=== PATIENT | female | born 1945 | race Caucasian/White ===

== ENCOUNTER 2021-11-07 15:28 | Inpatient (IN) | payer MEDICARE, OTHER ==
[2021-11-07] MEDS ORDERED: MORPHINE SULFATE 4 MG/ML SYRINGE IV STA (15:41)
--- NOTE | 2021-11-07 16:05 | ED ---
General Adult HPI - General Chief complaint: Extremity Injury, Upper Stated complaint: Fall Time Seen by Provider: 11/07/21 15:36 Source: patient, family, EMS, RN notes reviewed Mode of arrival: ambulatory - History of Present Illness Initial comments: Patient is a 76-year-old female presents the emergency room via EMS with her spouse after tripping and falling while at a restaurant earlier this afternoon. She fell onto her right shoulder and scanned her right knee. She reports that she heard a pop when she fell to her right shoulder. She is having severe pain in her right shoulder despite 150 g of fentanyl given to the patient by EMS. She has severe pain with any touch and declines any range of motion attempts both actively and passively. She denies hitting her head or any loss of consciousness. She is on Eliquis for pulmonary emboli which were identified last month. In addition to her pulmonary emboli history she has a history significant for hypertension, osteoarthritis, hyperlipidemia, depression, insomnia, and asthma. - Related Data Allergies Allergy/AdvReac Type Severity Reaction Status Date / Time No Known Allergies Allergy Verified 11/07/21 15:34 Review of Systems ROS Statement: Those systems with pertinent positive or pertinent negative responses have been documented in the HPI. ROS Other: All systems not noted in ROS Statement are negative. Past Medical History Past Medical History: Asthma, Hypertension, Osteoarthritis (OA), Pulmonary Embolus (PE) History of Any Multi-Drug Resistant Organisms: None Reported Past Psychological History: Depression Smoking Status: Never smoker Past Alcohol Use History: None Reported Past Drug Use History: None Reported General Exam General appearance: alert, in no apparent distress Head exam: Present: atraumatic, normocephalic, normal inspection Eye exam: Present: normal appearance, PERRL, EOMI. Absent: scleral icterus, conjunctival injection, periorbital swelling ENT exam: Present: normal exam, mucous membranes moist Neck exam: Present: normal inspection Respiratory exam: Present: normal lung sounds bilaterally. Absent: respiratory distress, wheezes, rales, rhonchi, stridor Cardiovascular Exam: Present: regular rate, normal rhythm, normal heart sounds. Absent: systolic murmur, diastolic murmur, rubs, gallop, clicks Right Shoulder Exam: Present: tenderness, tenderness over AC joint. Absent: full ROM (Declined active or passive range of motion.), laceration, ecchymosis, deformity, crepitus, dislocation, erythema Vascular: Absent: vascular compromise Right Lower Leg exam: Present: tenderness, swelling, laceration, deformity (chronic) Neurovascular tendon exam: Present: no vascular compromise Course Vital Signs 11/07/21 11/07/21 15:30 16:33 Temperature 98.0 F Pulse Rate 85 84 Respiratory 18 16 Rate Blood Pressure 172/79 145/83 O2 Sat by Pulse 98 98 Oximetry Procedures - Laceration Laceration #1 Site: lower extremity Size (cm): 3 Description: linear, clean Depth: simple, single layer Anesthetic Used: lidocaine 1% Anesthesia Technique: local infiltration Type of Sutures: nylon Size of Sutures: 4-0 Number of Sutures: 4 Technique: simple, interrupted Patient Tolerated Procedure: well, no complications Medical Decision Making - Medical Decision Making 36-year-old female presents to the emergency room after a trip and fall on a restaurant earlier today landing on her right arm and she needed an abrasion to her right couch. Pain uncontrolled with pain medication administered by EMS. Are already in swelling sling will continue sling. Will check x-ray of the right shoulder. Will give morphine for pain. With continued high levels of pain despite morphine will give Dilaudid 1 mg IV. X-ray shows fracture of the surgical neck of the humerus with separation of the distal fracture fragments of from the proximal fracture fragment. Pain still suboptimally controlled will give additional 1 mg of Dilaudid. Case consulted with Kamron from [facility] reporting patient may go home was seen in follow-up with [facility] however unfortunately patient has intractable pain due to fracture. Case further discuss with Dr. Crum accepts admission for intractable pain due to trauma and humerus fracture. Will consult medical management. He is requesting a CT would be ordered of the shoulder with [place] views bone window and 3-D reconstruction will order. Will continue pain management in order home medications. Laceration to right couch closure with sutures tolerated well. Needs suture removal in 7-10 days after discharge from admission. Case discussed with Dr. Ernst. - Radiology Data Radiology results: report reviewed, image reviewed X-ray shoulder right complete Fracture of the surgical neck of the humerus with separation of distal fracture fragments from the proximal fracture fragment Disposition Clinical Impression: Fracture of humerus, closed Disposition: ADMITTED IP TO THIS [facility] Condition: Stable Instructions (If sedation given, give patient instructions): Arm Fracture in Adults (ED) Is patient prescribed a controlled substance at d/c from ED?: No Referrals: Nonstaff,Physician [REFERRING] - 1-2 days Time of Disposition: 18:31
[2021-11-07] MEDS ORDERED: LIDOCAINE 1% INJ 10MG/ML (20 ML MDV) SQ ONE (16:09)
--- NOTE | 2021-11-07 16:22 | XR ---
EXAMINATION TYPE: XR shoulder complete RT DATE OF EXAM: 11/07/2021 COMPARISON: None HISTORY: Pain TECHNIQUE: 3 view right shoulder FINDINGS: There is a fracture of the surgical neck of the humerus. The humeral shaft is displaced vernon y from the humeral head. The humeral head articulates with the glenoid. There is some degenerative akosua int change at the glenohumeral junction. Some narrowing of the acromiohumeral joint space may be pres ent. IMPRESSION: 1. Fracture of the surgical neck of the humerus with separation of the distal fracture fragment from the proximal fracture fragment.
[2021-11-07] MEDS ORDERED: HYDROmorphone 1 MG/ML 1 ML SYRINGE IVP STA ×2 (16:31→17:21)
[2021-11-07] MEDS ORDERED: NALOXONE 0.4 MG/ML 1 ML VIAL IV PRN (18:31)
[2021-11-07] MEDS ORDERED: FLUoxetine HCL 20 MG CAP PO STA (18:34)
--- NOTE | 2021-11-07 19:16 | CT ---
EXAMINATION TYPE: CT shoulder RT wo con CT DLP: 1074.6 mGycm, Automated exposure control for dose reduction was used. DATE OF EXAM: 11/07/2021 6:47 PM COMPARISON: Shoulder radiograph same day CLINICAL INDICATION:Female, 76 years old with history of fracture; , Shoulder pain/fall. Fracture TECHNIQUE: Axial images were obtained of the right shoulder without the use of IV contrast. Addition al coronal and sagittal reformatted images and soft tissue and bone window were obtained for review. 3-D reconstruction was created on a separate workstation. FINDINGS: Commuted fracture of the right proximal humerus with anterior dislocation of the distal portion inclu ding the diaphysis anteriorly. There is end-stage osteoarthrosis changes of the right shoulder with s ubchondral cystic changes and osteophyte formation. Visualized portions of the scapula and the clavic le are intact. The lungs are intact. There is mild soft tissue swelling. IMPRESSION: 1. Comminuted fracture of the proximal right humerus with complete anterior displacement and shorten ing. 2. End-stage osteoarthrosis of the right shoulder.
[2021-11-07] MEDS: HYDROmorphone 1 MG/ML 1 ML SYRINGE IVP PRN ×2 (20:05→23:40)
[2021-11-07] MEDS: ATORVASTATIN 20 MG TAB PO SCH (21:54)
[2021-11-07] MEDS: traZODone HCL 50 MG TAB PO SCH (21:54)
[2021-11-07] MEDS: APIXABAN 5 MG TAB PO SCH (21:54)
[2021-11-07] MEDS: HYDROcodone/APAP 10-325MG 1 EACH TAB PO PRN (21:55)
[2021-11-08] MEDS: HYDROmorphone 1 MG/ML 1 ML SYRINGE IVP PRN ×3 (03:40→11:54)
[2021-11-08] MEDS: LEVOTHYROXINE 125 MCG TAB PO SCH (05:32)
[2021-11-08] MEDS: HYDROcodone/APAP 10-325MG 1 EACH TAB PO PRN ×3 (06:15→21:35)
[2021-11-08] MEDS: APIXABAN 5 MG TAB PO SCH ×2 (07:59→21:36)
[2021-11-08] MEDS: LOSARTAN 50 MG TAB PO SCH (07:59)
[2021-11-08] MEDS: MONTELUKAST 10 MG TAB PO SCH (07:59)
[2021-11-08] MEDS: MORPHINE SULFATE 2 MG/ML SYRINGE IVP PRN ×2 (15:08→19:38)
--- NOTE | 2021-11-08 17:42 | P.HPOR ---
History of Present Illness H&P Date: 11/08/21 Chief Complaint: Right shoulder pain This is a pleasant 76-year-old female who is admitted through the emergency department on 11/07/2021 after falling in a restaurant, landing on her right shoulder. She was brought to the emergency department by her where x- rays were taken. X-rays revealed a comminuted and 100% displaced proximal humerus fracture. The patient has history of diagnosis of pulmonary emboli bilaterally 2 months ago. She has been on Eliquis since then. She is unsure as to why she developed pulmonary emboli. She also states that they found "ground glass" on her chest x-ray. She reports no recent illnesses. The patient is admitted to our service for surgical intervention and further evaluation. Past Medical History Past Medical History: Asthma, Hypertension, Osteoarthritis (OA), Pulmonary Embolus (PE) History of Any Multi-Drug Resistant Organisms: None Reported Past Psychological History: Depression Smoking Status: Never smoker Past Alcohol Use History: None Reported Past Drug Use History: None Reported Medications and Allergies Home Medications Medication Instructions Recorded Confirmed Type Albuterol Inhaler [Ventolin Hfa 2 puff INHALATION RT-Q6H PRN 11/07/21 11/07/21 History Inhaler] Apixaban [Eliquis] 5 mg PO BID 11/07/21 11/07/21 History Ascorbic Acid [Vitamin C] 1,000 mg PO DAILY 11/07/21 11/07/21 History Calcium Carb/Mag Ox/Zinc Sulf 1 tab PO DAILY 11/07/21 11/07/21 History [[place]aw-Olxh 334-134-5 mg Tab] Co Q-10 30mg 30 mg PO DAILY 11/07/21 11/07/21 History Cyanocobalamin [Vitamin B-12] 500 mcg PO DAILY 11/07/21 11/07/21 History Cyclobenzaprine [Flexeril] 10 mg PO HS 11/07/21 11/07/21 History Diclofenac Sodium Gel [Voltaren 2 gm TOPICAL QID PRN 11/07/21 11/07/21 History Gel] Fluticasone Nasal [place] [Flonase 2 spray EA NOSTRIL DAILY PRN 11/07/21 11/07/21 History Nasal [place]] Fluticasone Propion/Salmeterol 2 puff INHALATION RT-BID 11/07/21 11/07/21 History [Advair Hfa 45-21 Mcg Inhaler] Furosemide [Lasix] 20 mg PO DAILY 11/07/21 11/07/21 History HYDROcodone/APAP 5-325MG [[place] 1 tab PO BID PRN 11/07/21 11/07/21 History 5-325] Levothyroxine Sodium [Synthroid] 125 mcg PO DAILY 11/07/21 11/07/21 History Montelukast [Singulair] 10 mg PO DAILY 11/07/21 11/07/21 History Potassium Chloride ER [K-Dur 10] 10 meq PO TID 11/07/21 11/07/21 History RX: FLUoxetine HCL 40 mg PO DAILY 11/07/21 11/07/21 History RX: Losartan Potassium 100 mg PO DAILY 11/07/21 11/07/21 History RX: Omeprazole 20 mg PO BID 11/07/21 11/07/21 History RX: Vitamin A 2,400 mcg PO DAILY 11/07/21 11/07/21 History Simvastatin [Zocor] 5 mg PO HS 11/07/21 11/07/21 History Turmeric Root Extract [Turmeric] 500 mg PO DAILY 11/07/21 11/07/21 History bisacodyL [Dulcolax] 30 mg PO DAILY@1400 11/07/21 11/07/21 History fluorouraciL [Efudex] 1 applic TOPICAL BID 11/07/21 11/07/21 History traZODone HCL [Desyrel] 50 mg PO HS 11/07/21 11/07/21 History Allergies Allergy/AdvReac Type Severity Reaction Status Date / Time No Known Allergies Allergy Verified 11/07/21 19:07 Physical Examination This is a pleasant 76-year-old female in no acute distress. She is alert and oriented 3. Exam of the upper extremities reveals no obvious deformity. She has full cervical spine motion without difficulty or pain. Exam of the upper extremities reveals swelling and ecchymosis to the right shoulder and upper arm. Her arm is in a sling. She has full wrist and finger motion without difficulty or pain. Neurovascular status to the upper extremity is intact. Exam of the left upper extremity is unremarkable. Exam of the lower extremities unremarkable. There are no deformities noted. She is able to lift each leg off the bed independently. Neurovascular status to the lower extremities is intact. Results X-rays and computed tomography scan of the right proximal humerus reveals a comminuted fracture with 100% displacement of the humeral head. Assessment and Plan (1) History of pulmonary embolism Current Visit: Yes Status: Acute Code(s): Z86.711 - PERSONAL HISTORY OF PULMONARY EMBOLISM SNOMED Code(s): 768223235 (2) Fracture of humerus, closed Current Visit: Yes Status: Acute Code(s): S42.309A - UNSP FRACTURE OF SHAFT OF HUMERUS, UNSP ARM, INIT SNOMED Code(s): 29508412 Plan: The clinical and x-ray findings are discussed with the patient. It is discussed that surgical treatment is indicated. However, with her recent history of pulmonary emboli and anticoagulation therapy, is recommended that she be evaluated by pulmonology for surgical recommendations. We'll continue to follow and we plan on surgery on Friday if she is cleared by pulmonology and if we can hold her Eliquis.
[2021-11-08] MEDS: ATORVASTATIN 20 MG TAB PO SCH (21:36)
[2021-11-08] MEDS: traZODone HCL 50 MG TAB PO SCH (21:36)
[2021-11-09] MEDS: HYDROmorphone 1 MG/ML 1 ML SYRINGE IVP PRN ×2 (00:53→05:16)
[2021-11-09 03:55] VITALS: PULSE 89
[2021-11-09] MEDS: LEVOTHYROXINE 125 MCG TAB PO SCH (05:15)
[2021-11-09 07:51] VITALS: BP 123/69; RESP 18; TEMP 98.6
[2021-11-09] MEDS ORDERED: HEPARIN SOD,PORK IN 0.45% NACL 25,000 UNIT in 0.45% NACL 1 250ML.BAG IV SCH (08:00)
--- NOTE | 2021-11-09 09:06 | P.DS ---
Providers Date of admission: 11/08/21 13:38 Expected date of discharge: 11/09/21 Attending physician: Tashi Crum Consults: 11/08/21 12:32 Consult Physician Routine Consulting Provider: Jeremiah Francisco Consult Reason/Comments: surgical clearance, recent bilat PE's Do you want consulting provider notified?: Yes Primary care physician: JING VENEGAS MD - Discharge Diagnosis(es) (1) History of pulmonary embolism Current Visit: Yes Status: Acute (2) Fracture of humerus, closed Current Visit: Yes Status: Acute Hospital Course: This is a pleasant 76-year-old female who is admitted through the emergency department on 11/07/2021 after falling in a restaurant, landing on her right shoulder. She was brought to the emergency department by her where x- rays were taken. X-rays revealed a comminuted and 100% displaced proximal humerus fracture. The patient has history of diagnosis of pulmonary emboli bilaterally 2 months ago. She has been on Eliquis since then. She is unsure as to why she developed pulmonary emboli. She also states that they found "ground glass" on her chest x-ray. She reports no recent illnesses. The patient is admitted to our service for surgical intervention and further evaluation. Surgery was planned for this patient. It was recommended she have a reverse total shoulder replacement. The patient decided to be discharged to home and follow up with her orthopedic surgeon in [place]. The patient will be discharged to home today. She is advised to follow-up with orthopedics and pulmonology in [place] as soon as possible. She may continue her anticoagulation therapy until surgery as scheduled. Patient Condition at Discharge: Stable Plan - Discharge Summary New Discharge Prescriptions: New HYDROcodone/APAP 10-325MG [[place] 10-325] 1 tab PO Q6HR PRN #28 tab PRN Reason: Pain No Action Montelukast [Singulair] 10 mg PO DAILY Losartan Potassium 100 mg PO DAILY Levothyroxine Sodium [Synthroid] 125 mcg PO DAILY HYDROcodone/APAP 5-325MG [[place] 5-325] 1 tab PO BID PRN PRN Reason: Pain Furosemide [Lasix] 20 mg PO DAILY bisacodyL [Dulcolax] 30 mg PO DAILY@1400 Albuterol Inhaler [Ventolin Hfa Inhaler] 2 puff INHALATION RT-Q6H PRN PRN Reason: Shortness Of Breath Co Q-10 30mg 30 mg PO DAILY Fluticasone Nasal [place] [Flonase Nasal [place]] 2 spray EA NOSTRIL DAILY PRN PRN Reason: Allergy Symptoms Ascorbic Acid [Vitamin C] 1,000 mg PO DAILY Diclofenac Sodium Gel [Voltaren Gel] 2 gm TOPICAL QID PRN PRN Reason: Pain Cyclobenzaprine [Flexeril] 10 mg PO HS Fluticasone Propion/Salmeterol [Advair Hfa 45-21 Mcg Inhaler] 2 puff INHALATION RT-BID traZODone HCL [Desyrel] 50 mg PO HS Simvastatin [Zocor] 5 mg PO HS Potassium Chloride ER [K-Dur 10] 10 meq PO TID Omeprazole 20 mg PO BID Cyanocobalamin [Vitamin B-12] 500 mcg PO DAILY Turmeric Root Extract [Turmeric] 500 mg PO DAILY Calcium Carb/Mag Ox/Zinc Sulf [Ves-Mut-Xraq 334-134-5 mg Tab] 1 tab PO DAILY Vitamin A 2,400 mcg PO DAILY fluorouraciL [Efudex] 1 applic TOPICAL BID FLUoxetine HCL 40 mg PO DAILY Apixaban [Eliquis] 5 mg PO BID Discharge Medication List Albuterol Inhaler [Ventolin Hfa Inhaler] 2 puff INHALATION RT-Q6H PRN 11/07/21 [History] Apixaban [Eliquis] 5 mg PO BID 11/07/21 [History] Ascorbic Acid [Vitamin C] 1,000 mg PO DAILY 11/07/21 [History] Calcium Carb/Mag Ox/Zinc Sulf [Zot-Kxn-Bxhr 334-134-5 mg Tab] 1 tab PO DAILY 11/07/21 [History] Co Q-10 30mg 30 mg PO DAILY 11/07/21 [History] Cyanocobalamin [Vitamin B-12] 500 mcg PO DAILY 11/07/21 [History] Cyclobenzaprine [Flexeril] 10 mg PO HS 11/07/21 [History] Diclofenac Sodium Gel [Voltaren Gel] 2 gm TOPICAL QID PRN 11/07/21 [History] FLUoxetine HCL 40 mg PO DAILY 11/07/21 [History] Fluticasone Nasal [place] [Flonase Nasal [place]] 2 spray EA NOSTRIL DAILY PRN 11/07/21 [History] Fluticasone Propion/Salmeterol [Advair Hfa 45-21 Mcg Inhaler] 2 puff INHALATION RT-BID 11/07/21 [History] Furosemide [Lasix] 20 mg PO DAILY 11/07/21 [History] HYDROcodone/APAP 5-325MG [[place] 5-325] 1 tab PO BID PRN 11/07/21 [History] Levothyroxine Sodium [Synthroid] 125 mcg PO DAILY 11/07/21 [History] Losartan Potassium 100 mg PO DAILY 11/07/21 [History] Montelukast [Singulair] 10 mg PO DAILY 11/07/21 [History] Omeprazole 20 mg PO BID 11/07/21 [History] Potassium Chloride ER [K-Dur 10] 10 meq PO TID 11/07/21 [History] Simvastatin [Zocor] 5 mg PO HS 11/07/21 [History] Turmeric Root Extract [Turmeric] 500 mg PO DAILY 11/07/21 [History] Vitamin A 2,400 mcg PO DAILY 11/07/21 [History] bisacodyL [Dulcolax] 30 mg PO DAILY@1400 11/07/21 [History] fluorouraciL [Efudex] 1 applic TOPICAL BID 11/07/21 [History] traZODone HCL [Desyrel] 50 mg PO HS 11/07/21 [History] HYDROcodone/APAP 10-325MG [[place] 10-325] 1 tab PO Q6HR PRN #28 tab 11/09/21 [Rx] Follow up Appointment(s)/Referral(s): Nonstaff,Physician [REFERRING] - 1-2 days Patient Instructions/Handouts: Arm Fracture in Adults (ED) Activity/Diet/Wound Care/Special Instructions: Maintain sling for comfort. Follow up w ortho and pulmonary [facility]. Discharge Disposition: HOME SELF-CARE
[2021-11-09] MEDS: MONTELUKAST 10 MG TAB PO SCH (09:35)
[2021-11-09] MEDS: LOSARTAN 50 MG TAB PO SCH (09:35)
[2021-11-09] MEDS: HYDROcodone/APAP 10-325MG 1 EACH TAB PO PRN (09:40)
[2021-11-09] MEDS ORDERED: APIXABAN 5 MG TAB PO SCH (09:45)
--- NOTE | 2021-11-09 10:43 | P.CNPUL ---
History of Present Illness Consult date: 11/09/21 Requesting physician: Tashi Crum Reason for consult: other Chief complaint: Preop clearance. History of present illness: Pulmonary consult dated 11/09/2021. 76-year-old female who was visiting a local restaurant, when she fell, and injured her right shoulder. She was apparently found to have a right shoulder fracture. She also injured her right knee. The patient was admitted to the hospital after being evaluated in the emergency department. We are asked to see her for preoperative clearance. The patient recently had a pulmonary embolism, but the be secondary to a coronavirus infection. The patient apparently sees doctors in the [facility]. She was on a factor X a inhibitor. The plan was to go ahead and stop her blood thinner, put her on IV heparin, so that she could have shoulder surgery. She does have a history of hypertension, DJD, hyperlipidemia, depression, insomnia, and asthma. After spending quite a bit of time talking to her about her predicament, she then announces that she plans to go back to her own doctors in the [place] area. Labs, x-rays, and medications are all reviewed. X-rays revealed fracture of the surgical neck of the humerus, with separation of the distal fracture fragment from the proximal fracture fragment. Review of Systems REVIEW OF SYSTEMS: CONSTITUTIONAL: [Negative.] NEUROLOGIC: [ Negative.] HEENT: [ Negative.] CARDIAC: [Negative.] PULMONARY: [Negative.] GI: [Negative.] : [Negative.] RHEUMATOLOGIC: Right shoulder pain. IMMUNOLOGIC: [ Negative.] ENDOCRINE: [Negative. ] DERMATOLOGIC: [Negative.] Past Medical History Past Medical History: Asthma, Hypertension, Osteoarthritis (OA), Pulmonary Embolus (PE) History of Any Multi-Drug Resistant Organisms: None Reported Past Psychological History: Depression Smoking Status: Never smoker Past Alcohol Use History: None Reported Past Drug Use History: None Reported Medications and Allergies Home Medications Medication Instructions Recorded Confirmed Type Albuterol Inhaler [Ventolin Hfa 2 puff INHALATION RT-Q6H PRN 11/07/21 11/07/21 History Inhaler] Apixaban [Eliquis] 5 mg PO BID 11/07/21 11/07/21 History Ascorbic Acid [Vitamin C] 1,000 mg PO DAILY 11/07/21 11/07/21 History Calcium Carb/Mag Ox/Zinc Sulf 1 tab PO DAILY 11/07/21 11/07/21 History [Cix-Ihz-Mvln 334-134-5 mg Tab] Co Q-10 30mg 30 mg PO DAILY 11/07/21 11/07/21 History Cyanocobalamin [Vitamin B-12] 500 mcg PO DAILY 11/07/21 11/07/21 History Cyclobenzaprine [Flexeril] 10 mg PO HS 11/07/21 11/07/21 History Diclofenac Sodium Gel [Voltaren 2 gm TOPICAL QID PRN 11/07/21 11/07/21 History Gel] FLUoxetine HCL 40 mg PO DAILY 11/07/21 11/07/21 History Fluticasone Nasal [place] [Flonase 2 spray EA NOSTRIL DAILY PRN 11/07/21 11/07/21 History Nasal [place]] Fluticasone Propion/Salmeterol 2 puff INHALATION RT-BID 11/07/21 11/07/21 History [Advair Hfa 45-21 Mcg Inhaler] Furosemide [Lasix] 20 mg PO DAILY 11/07/21 11/07/21 History HYDROcodone/APAP 5-325MG [[place] 1 tab PO BID PRN 11/07/21 11/07/21 History 5-325] Levothyroxine Sodium [Synthroid] 125 mcg PO DAILY 11/07/21 11/07/21 History Losartan Potassium 100 mg PO DAILY 11/07/21 11/07/21 History Montelukast [Singulair] 10 mg PO DAILY 11/07/21 11/07/21 History Omeprazole 20 mg PO BID 11/07/21 11/07/21 History Potassium Chloride ER [K-Dur 10] 10 meq PO TID 11/07/21 11/07/21 History Simvastatin [Zocor] 5 mg PO HS 11/07/21 11/07/21 History Turmeric Root Extract [Turmeric] 500 mg PO DAILY 11/07/21 11/07/21 History Vitamin A 2,400 mcg PO DAILY 11/07/21 11/07/21 History bisacodyL [Dulcolax] 30 mg PO DAILY@1400 11/07/21 11/07/21 History fluorouraciL [Efudex] 1 applic TOPICAL BID 11/07/21 11/07/21 History traZODone HCL [Desyrel] 50 mg PO HS 11/07/21 11/07/21 History HYDROcodone/APAP 10-325MG [[place] 1 tab PO Q6HR PRN #28 tab 11/09/21 Rx 10-325] Allergies Allergy/AdvReac Type Severity Reaction Status Date / Time No Known Allergies Allergy Verified 11/07/21 19:07 Physical Exam Osteopathic Statement: *. No significant issues noted on an osteopathic structural exam other than those noted in the History and Physical/Consult. Vitals: Vital Signs Temp Pulse Resp BP Pulse Ox 11/09/21 07:00 98.6 F 89 18 123/69 94 L 11/09/21 00:58 98.8 F 89 16 123/68 95 11/08/21 20:00 85 18 11/08/21 19:31 99.4 F 93 17 125/60 97 11/08/21 14:53 98.2 F 85 18 121/61 93 L 11/08/21 14:00 85 18 Intake and Output 11/08/21 11/09/21 11/09/21 22:59 06:59 14:59 Other: Voiding Method Toilet # Voids 1 No acute distress, oriented 3. Room air saturation 95%. HEENT examination is grossly unremarkable. Neck supple. Full range of motion. No adenopathy thyromegaly or neck vein distention. Cardiovascular examination reveals regular rhythm rate. S1-S2 normal. No S3 or S4. No discernible murmur noted. Heart rate 89 bpm. Lungs reveal clear breath sounds. Breath sounds are equal bilaterally. No adventitious lung sounds including wheezes rhonchi or crackles. Abdomen soft bowel sounds are heard. No masses or tenderness. Extremities are intact. No cyanosis clubbing or edema. Skin is without rash or lesion. Neurologic examination is brief but nonfocal. Results - Diagnostic Findings Chest x-ray: image reviewed Assessment and Plan Assessment: Status post fall, with proximal humeral fracture. History of recent bilateral pulmonary emboli, thought to be secondary to coronavirus infection. Other medical problems and comorbidities, as listed above. Plan: Plan dated 11/09/2021. The patient had a provoked pulmonary embolism, and should be treated for 3 months. The patient has been on blood thinners even longer than that. In addition, is not clear to me whether or not she had a follow-up CT angiogram. After explaining all of this to her, and talking about placing her on IV heparin, she then announces that she's going back to the [facility] to see her own doctors. The patient will be discharged and will follow-up with her doctores there. She is started back on a factor X a inhibitor. IV heparin will be discontinued. Prognosis is guarded. Time with Patient: Greater than 30
== END 2021-11-09 12:07 | disposition short-term general hospital (02) | DRG 563 ==
LOC: EC 15:28 → 6NMEDSUR 17:20 → OBSVTOIN 11-08 13:38
PROVIDERS: ADMIT Orthopaedic Surgery; ATTEND Orthopaedic Surgery
PROC: 0HQKXZZ Repair Right Lower Leg Skin, External Approach (ICD-10-PCS; principal; 2021-11-07)
DX: S42.211A Unspecified displaced fracture of surgical neck of right humerus, initial encounter for closed fracture (principal); S81.811A Laceration without foreign body, right lower leg, initial encounter; E78.5 Hyperlipidemia, unspecified; F32.A Depression, unspecified; I10 Essential (primary) hypertension; J45.909 Unspecified asthma, uncomplicated; G47.00 Insomnia, unspecified; M19.90 Unspecified osteoarthritis, unspecified site; Z79.01 Long term (current) use of anticoagulants; Z79.890 Hormone replacement therapy; Z79.899 Other long term (current) drug therapy; Z86.711 Personal history of pulmonary embolism; Z86.16 Personal history of COVID-19; W01.0XXA Fall on same level from slipping, tripping and stumbling without subsequent striking against object, initial encounter; Y92.511 Restaurant or cafe as the place of occurrence of the external cause
CPT/HCPCS: 12002; 96374; 96375; 96376; 99285